=== PATIENT | male | born 1950 | race Caucasian/White ===

== ENCOUNTER → 2017-04-13 | Day surgery (SDC) | payer MEDICARE ==
[~2017-04-13] MED LIST: ACETAMINOPHEN 1000 MG/100 ML 100 ML IV ONE; BALANCED SALT SOLN OPHT IRRIG 15 ML BTL ONE; BUPIVACAINE/EPINEPHRINE 0.25% 50 ML VIAL ONE; DEXAMETHASONE SOD PHOS 4 MG/ML VIAL IV ONE; LACTATED RINGER'S 1000 ML INJ 1,000 ML ONE; LIDOCAINE 1.5%/EPINEPHrine 1:200,000 PF SOLN 30 ML AMP ONE; LIDOCAINE HCL 1% PF 5 ML AMPULE OTHER ONE; MIDAZOLAM HCL 2 MG/2 ML VIAL ONE; NEOMYCIN/POLYMYXIN/BACITRACIN OINT 15 GM TUBE ONE; ONDANSETRON HCL 4 MG/2 ML VIAL IV PUSH ONE; PROPOFOL 200 MG/20 ML AMP IV ONE; ceFAZolin INJ 1,000 MG VIAL ONE
--- NOTE | 2017-04-13 09:11 | TN ---
cc: ZACKARY BRANDT M.D. 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 POSTOPERATIVE DIAGNOSIS History of squamous cell carcinoma located on the right nasal dorsum/nasal tip , and basal cell right upper medial cheek. PROCEDURE A wide local excision with a resultant defect on the right upper nose 1 x 1 cm, cheek 1.5 x 1.5 cm. Both of them required frozen section which was negative by Dr. Vang of pathology at [facility]. The reconstruction was tissue rearrangement for a resultant secondary defect of the nose 1 x 2 cm, and the cheek 1.5 x 4 cm. SURGEON Zackary Brandt MD, FACS. ANESTHESIA LMA general, plus a total of 10 cc of 1% lidocaine with epinephrine mixed with 0.25% Marcaine in a 2:1 ratio. COMPLICATIONS None. DETAILS OF PROCEDURE He was properly consented, marked and anesthetized. The skin was sterilized with Microcyn and sterile draping was applied. We proceeded and performed the excision of both lesions as previously mentioned and sent to pathology for further microscopic analysis. Both came back to be negative for pathology at the borders and/or at the deep margin. A tissue arrangement, V-Y reconstruction, was done on both sides on both lesions for the resultant secondary defect of the nose 1 x 2 cm and for the cheek 1.5 x 4 cm. Both were inset utilizing 4-0 Monocryl suture and 5-0 fast-absorbing gut. Excellent viability of tissue was noted at the end of the case. The patient was treated with the proper absorbent dressings along with Dermabond. He was awakened and extubated in the operating room and transferred back to the post-anesthesia care unit in stable condition. No complications were appreciated. The patient tolerated the procedure fairly well. MD MELANY Forman/YULISSA /8:46 AM /8:58 AM [facility]
== END | disposition home or self-care (01) ==
LOC: ESDC 06:26
PROVIDERS: ATTEND Plastic Surgery
DX: C44.321 Squamous cell carcinoma of skin of nose (principal); C76.0 Malignant neoplasm of head, face and neck
CPT/HCPCS: 00300; 14040; 14060; 88305; 88331; J0131; J0690; J1100; J2250; J2405; J3010; J7120